=== PATIENT | male | born 1965 | race Caucasian/White ===

== ENCOUNTER 2018-02-02 19:08 | Inpatient (IN) | payer MEDICARE, OTHER ==
[2018-02-02 19:59] LABS: % BASOPHILS 0.8 % (0.0-2.0); % EOSINOPHILS 4.6 % (0.0-5.0); % LYMPHOCYTES 26.6 % (20.0-50.0); % MONOCYTES 7.6 % (2.0-10.0); % NEUTROPHILS 60.4 % (40.0-80.0); EOSINOPHILE ABSOLUTE 0.3 Th/cmm (0.1-0.4); HEMATOCRIT 40.7 % (41.0-60); HEMOGLOBIN 13.7 gm/dL (12-16); LYMPHOCYTE ABSOLUTE 1.6 Th/cmm (1.5-3.0); MEAN CELL VOLUME 91.7 fl (80-99); MEAN CORPUSCULAR HEMOGLOBIN 30.9 pg (26.0-30.0); MEAN CORPUSCULAR HGB CONC 33.7 pg (28.0-36.0); MEAN PLATELET VOLUME 8.5 fl; MONOCYTE ABSOLUTE 0.5 Th/cmm (0.3-1.0); NEUTROPHILE ABSOLUTE 3.6 Th/cmm (1.8-8.0); PLATELET COUNT 208 Th/cmm (150-400); RED BLOOD COUNT 4.44 Mil/cmm (4.30-5.70); RED CELL DISTRIBUTION WIDTH 12.8 % (11.5-20.0)
[2018-02-02 20:14] LABS: ALB/GLOB RATIO 1.2 (1.0-1.8); ALBUMIN 3.9 gm/dL (4.2-5.5); BILIRUBIN,TOTAL 0.3 mg/dL (0.3-1.0); CALCIUM SERUM 9.6 mg/dL (8.6-10.3); CREATININE - SERUM 1.7 mg/dL (0.7-1.3); GFR AFRICAN-AMERICAN 54.3 ml/min (>90); GFR NON AFRICAN-AMERICAN 44.9 ml/min; PHOSPHOROUS 3.8 mg/dL (2.5-5.0); TOTAL PROTEIN,SERUM 7.3 gm/dL (6.0-8.3)
[2018-02-02 20:23] LABS: URINE SOURCE CLEAN C
[2018-02-02 20:26] LABS: URINE BILIRUBIN NEGATIVE (NEGATIVE); URINE BLOOD NEGATIVE (NEGATIVE); URINE GLUCOSE (UA) 250 mg/dL (NEGATIVE); URINE KETONE NEGATIVE (NEGATIVE); URINE LEUKOCYTE ESTERASE NEGATIVE (NEGATIVE); URINE NITRATE NEGATIVE (NEGATIVE); URINE PH 5.5 (4.6 - 8.0); URINE PROTEIN >=300 mg/dL (NEGATIVE); URINE UROBILINOGEN 0.2 E.U./dL (0.2 - 1.0)
[2018-02-02 20:40] LABS: URINE CLARITY CLEAR (CLEAR); URINE COLOR YELLOW; URINE MICROSCOPIC INDICATED? YES
[2018-02-02 20:43] LABS: URINE BACTERIA FEW /hpf (NONE SEEN); URINE COARSE GRANULAR CAST 0-2 /lpf (NONE SEEN); URINE EPITHELIAL CELLS FEW /lpf (FEW); URINE RBC 0-2 /hpf (0-5)
[2018-02-02 20:48] LABS: AMPHETAMINE URINE NEGATIVE (NEGATIVE); BARBITURATES URINE NEGATIVE (NEGATIVE); BENZODIAZEPINES QUAL URINE NEGATIVE (NEGATIVE); CANNABINOID THC NEGATIVE (NEGATIVE); COCAINE METABOLITE QUAL URINE NEGATIVE (NEGATIVE); METHADONE URINE NEGATIVE (NEGATIVE); METHAMPHETAMINES QUAL URINE NEGATIVE (NEGATIVE); OPIATES (MORPHINE) QUAL. URINE POSITIVE (NEGATIVE); PHENCYCLIDINE (PCP) URINE NEGATIVE (NEGATIVE); TRICYCLICS (TCA) QUAL. URINE NEGATIVE (NEGATIVE)
--- NOTE | 2018-02-02 20:48 | ED Physician Chart ---
ED Chief Complaint/HPI - Patient Information Date Seen:: 02/02/18 Time Seen:: 19:25 Chief Complaint:: increased agitation. History of Present Illness:: resident struck the wall. increased agitation. Allergies:: Allergies Allergy/AdvReac Type Severity Reaction Status Date / Time No Known Allergies Allergy Verified 02/02/18 19:51 Vitals:: Vital Signs - 8 hr 02/02/18 19:25 Temp 97.9 F HR 78 RR 18 BP 127/75 O2 Sat % 98 Historian:: Medical Records Review:: Nurse's Note Reviewed, Transfer documents Reviewed ED Review of Systems - Review of Systems General/Constitutional: No fever, No chills, No weight loss, No weakness, No diaphoresis, No edema, No loss of appetite Skin: No skin lesions, No rash, No bruising Head: No headache, No light-headedness Eyes: No loss of vision, No pain, No diplopia ENT: No earache, No nasal drainage, No sore throat, No tinnitus Neck: No neck pain, No swelling, No thyromegaly, No stiffness, No mass noted Cardio Vascular: No chest pain, No palpitations, No PND, No orthopnea, No edema Pulmonary: No SOB, No cough, No sputum, No wheezing GI: No nausea, No vomiting, No diarrhea, No pain, No melena, No hematochezia, No constipation, No hematemesis G/U: No dysuria, No frequency, No hematuria Musculoskeletal: No bone or joint pain, No back pain, No muscle pain Endocrine: No polyuria, No polydipsia Psychiatric: Other (increased agitation. punched a wall.) Hematopoietic: No bruising, No lymphadenopathy Allergic/Immuno: No urticaria, No angioedema Neurological: No syncope, No focal symptoms, No weakness, No paresthesia, No headache, No seizure, No dizziness, No confusion, No vertigo ED Past Medical History - Past Medical History Obtainable: No Past Medical History: HTN, DM, CVA/TIA, Dyslipidemia, PUD/GERD, Seizures, Other (dysphagia; muscle weakness; difficulty in walking; peripheral vascular disease ; dysarthria) Psychiatricy History: Depression, Schizophrenia, Other (anxiety) Family Medical History - Family Member Mother History Unknown: Yes Ethnicity: Unknown Hx Family Cancer: (unknown) Hx Family Coronary Artery Disease: (unknown) Hx Family Congestive Heart Failure: (unknown) Hx Family Hypertension: (unknown) Hx Family Stroke: (unknown) Hx Family Diabetes: (unknown) Hx Family Seizures: (unknown) Hx Family Dementia: (unknown) Hx Family AIDS: (unknown) Hx Family COPD: (unknown) Hx Family Hepatitis: (unknown) Hx Family Psychiatric Problems: (unknown) Hx Family Tuberculosis: (unknown) ED Physical Exam - Physical Examination General/Constitutional: Awake, Alert, No distress Other Gen/Cons comments:: pale and chronically ill appearing Head: Atraumatic Eyes: Lids, conjuctiva normal, PERRL, EOMI Other Skin comments:: No skin breakdown or sores. Neck: Nontender, Full ROM w/o pain, No JVD, No nuchal rigidity, No bruit, No mass, No stridor Respiratory: Nl effort/Exclusion, Clear to Auscultation, No Wheeze/Rhonchi/Rales Cardio Vascular: RRR, No murmur, gallop, rubs, NL S1 S2 GI: No tenderness/rebounding/guarding, No organomegaly, No hernia, Normal BS's, Nondistended, No mass/bruits, No McBurney tenderness Other Extremities comments:: LUE contracted with 1/5. LLE with 1/5. No skin breakdown or sores. Neuro/Psych: Alert/oriented Other Neuro/Psych comments:: LUE contracted with 1/5. LLE with 1/5. ED Labs/Radiology/EKG Results - Lab Results Results: Laboratory Tests 02/02/18 02/02/18 02/02/18 19:52 19:52 19:52 WBC 6.0 RBC 4.44 Hgb 13.7 Hct 40.7 L MCV 91.7 MCH 30.9 H MCHC Differential 33.7 RDW 12.8 Plt Count 208 MPV 8.5 Neutrophils % 60.4 Lymphocytes % 26.6 Monocytes % 7.6 Eosinophils % 4.6 Basophils % 0.8 Sodium 137 Potassium 4.0 Chloride 101 Carbon Dioxide 29.0 Anion Gap 11.0 BUN 24 Creatinine 1.7 H Est GFR ( Amer) 54.3 Est GFR (Non-Af Amer) 44.9 BUN/Creatinine Ratio 14.1 Glucose 300 H Calcium 9.6 Phosphorus 3.8 Magnesium 2.0 Total Bilirubin 0.3 AST 16 ALT 14 Alkaline Phosphatase 50 Total Protein 7.3 Albumin 3.9 L Globulin 3.4 Albumin/Globulin Ratio 1.2 Urine Source Urine Color Urine Clarity Urine pH Ur Specific [place] Urine Protein Urine Glucose (UA) Urine Ketones Urine Blood Urine Nitrate Urine Bilirubin Urine Urobilinogen Ur Leukocyte Esterase Urine RBC Urine WBC Ur Epithelial Cells Urine Bacteria Coarse Granular Casts Valproic Acid < 10.0 L 02/02/18 20:00 WBC RBC Hgb Hct MCV MCH MCHC Differential RDW Plt Count MPV Neutrophils % Lymphocytes % Monocytes % Eosinophils % Basophils % Sodium Potassium Chloride Carbon Dioxide Anion Gap BUN Creatinine Est GFR ( Amer) Est GFR (Non-Af Amer) BUN/Creatinine Ratio Glucose Calcium Phosphorus Magnesium Total Bilirubin AST ALT Alkaline Phosphatase Total Protein Albumin Globulin Albumin/Globulin Ratio Urine Source CLEAN C Urine Color YELLOW Urine Clarity CLEAR Urine pH 5.5 Ur Specific [place] >= 1.030 Urine Protein >=300 Urine Glucose (UA) 250 H Urine Ketones NEGATIVE Urine Blood NEGATIVE Urine Nitrate NEGATIVE Urine Bilirubin NEGATIVE Urine Urobilinogen 0.2 Ur Leukocyte Esterase NEGATIVE Urine RBC 0-2 H Urine WBC 2-5 Ur Epithelial Cells FEW Urine Bacteria FEW Coarse Granular Casts 0-2 H Valproic Acid ED Assessment - Assessment General Assessment: resting comfortably. has eaten dinner. Assessment/Comments:: patient is clear from a medical standpoint for geropsych. ED Septic Shock - . Is Septic Shock (SBP<90, OR Lactate>4 mmol\L) present?: No - <6hrs of presentation: Vital Signs: Vital Signs - 8 hr 02/02/18 19:25 Temp 97.9 F HR 78 RR 18 BP 127/75 O2 Sat % 98 ED Reassessment (Disposition) - Reassessment Reassessment Condition:: Unchanged - Diagnosis Diagnosis:: Increased agitation. Schizophrenia Anxiety Major depressive disorder Diabetes mellitus, not well controlled. 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 Hyperlipidemia HTN PVD GERD witout esophagitis Epilepsy, unspecified, not intractable - Patient Disposition Discharge/Transfer:: Acute Care w/in this hosp Admitted to:: [facility] Condition at Disposition:: Stable
[2018-02-02] MEDS ORDERED: INSULIN HUMAN REGULAR 100 UNITS/ML UNIT SUBQ ONE (20:56)
[2018-02-02] MEDS ORDERED: INSULIN HUMAN REGULAR 100 UNITS/ML UNIT ONE (20:59)
[2018-02-02 22:05] VITALS: BP 179/96
[2018-02-03] MEDS: Hydrocodone/APAP 5mg/325mg Tab PO SCH ×3 (05:21→20:31)
[2018-02-03] MEDS: INSULIN ASPART SLIDING SCALE 100 UNITS/ML UNIT SUBQ SCH ×4 (06:41→21:00)
[2018-02-03] MEDS: Insulin Detemir 100 units/mL 10mL Vial SUBQ SCH ×2 (10:08→20:48)
[2018-02-03 21:10] LABS: A1C % 8.8 % (4.0-6.0)
--- NOTE | 2018-02-04 01:10 | Psychiatric Evaluation ---
DATE OF SERVICE: 02/02/2018 PSYCHIATRIC INITIAL EVALUATION AND MENTAL STATUS EXAM PATIENT'S AGE: 52. SEX: Male. PHYSICIAN: Dr. Lawson. CHIEF COMPLAINT: Severe depression and self-destructive injury. HISTORY OF PRESENT ILLNESS: The patient is a 52-year-old male who lives in [facility]. I evaluated the patient there and the patient has been in a depressed mood and has been upset because he has difficulty swallowing. The patient also has been feeling hopeless and helpless and has been hitting his head against the wall. Especially, that his girlfriend who is also a resident in the [facility], has been doing better than him. The patient also has been withdrawn and has been feeling lack of energy and lack of motivations and he has been more agitated lately because of his inability to do more things. PAST PSYCHIATRIC HISTORY: The patient has history of depression and schizophrenia and has been taking Prozac and Depakote and Tegretol. PAST MEDICAL HISTORY: The patient has hypertension, diabetes mellitus, status post CVA and TIA. The patient also has history of seizure disorder. FAMILY HISTORY: No known psychiatric history. SOCIAL HISTORY: The patient lives in [facility]. No known alcohol or drug use. ALLERGIES: No known allergies. MENTAL STATUS EXAMINATION: The patient appears slightly older than his stated age. Sad affect. Depressed mood. Poor eye contact. Low tone and rate of speech. Thought processes are mainly goal directed. The patient denies any auditory or visual hallucinations or delusions. He also denies any thoughts of suicide or homicide at the time being. The patient is alert and oriented to place, person, and situation. Intact immediate, recent and remote memories. Fair insight, but poor judgment. He seems to be of average intelligence based on his verbal ability. ASSESSMENT: PRIMARY DIAGNOSIS: Schizoaffective disorder, depressed episode, with psychotic features. AFTER DISCHARGE PLAN: The patient will return to the [place] [facility] with plans to continue his treatment there. CRITERIA FOR DISCHARGE: The patient will not be depressed or suicidal and will stabilize psychotropic medications and will establish outpatient treatment plans. [facility]# [id number]
[2018-02-04] MEDS: Hydrocodone/APAP 5mg/325mg Tab PO SCH ×3 (05:15→20:25)
[2018-02-04] MEDS: INSULIN ASPART SLIDING SCALE 100 UNITS/ML UNIT SUBQ SCH ×4 (07:03→20:27)
[2018-02-04] MEDS: Insulin Detemir 100 units/mL 10mL Vial SUBQ SCH ×2 (09:21→20:26)
--- NOTE | 2018-02-04 13:20 | Progress Notes ---
DATE: 02/04/[address] Lawson. This is a 52-year-old male who was admitted on 02/02/2018 because of severe depression, self-destructive injury. The patient lives at [facility]. The patient has been depressed, upset because he has difficulty swallowing. The patient also has been feeling hopeless and helpless, has been hitting his head against the wall, especially that his girlfriend who is also a resident in the [facility] has been doing better than him, has been withdrawn, has been feeling lack of energy and motivation, more agitated lately because of his inability to do things. He has a history of depression, has been taking Prozac and Depakote and Tegretol. The patient with a history of depression and schizophrenia. When I tried to talk to him, he was internally preoccupied. He would not answer any of my questions. He seems to be upset. He is on Depakote 250 mg twice a day, Prozac increased to 40 mg daily yesterday by Dr. Lawson. The patient also on Trileptal 300 mg twice a day with no side effects, no sedation, no nausea and no extrapyramidal symptoms. His Depakote level was non-detected. Obviously, the patient may have not been compliant with his medication prior to admission, so we are going to recheck his level in few days and we will continue outpatient group therapy, milieu therapy, adjust medications as needed. [facility]# [id number]
--- NOTE | 2018-02-04 21:19 | History and Physical ---
History of Present Illness - HPI Chief Complaint: aggressive behavior HPI: 51 year old male admitted to [facility] due to aggressive behavior at the snf. Vital Signs: Last Vital Signs Temp 97.7 F 02/04/18 20:00 Pulse 72 02/04/18 20:24 Resp 19 02/04/18 20:00 BP 116/74 02/04/18 20:24 Pulse Ox 96 02/04/18 20:00 Past Medical History Other History: HTN, DM, CVA/TIA, Dyslipidemia, PUD/GERD, Seizures, Other (dysphagia; muscle weakness; difficulty in walking; peripheral vascular disease; dysarthria Family Medical History - Family Member Mother History Unknown: Yes Ethnicity: Unknown Living Status: Unknown Hx Family Cancer: (unknown) Hx Family Coronary Artery Disease: (unknown) Hx Family Congestive Heart Failure: (unknown) Hx Family Hypertension: (unknown) Hx Family Stroke: (unknown) Hx Family Diabetes: (unknown) Hx Family Seizures: (unknown) Hx Family Dementia: (unknown) Hx Family AIDS: (unknown) Hx Family COPD: (unknown) Hx Family Hepatitis: (unknown) Hx Family Psychiatric Problems: (unknown) Hx Family Tuberculosis: (unknown) Social History Smoke: No Alcohol: None Drugs: None Lives: Snf - Medications Home Medications: Home Medication Medication Instructions Recorded Type Divalproex [Randee RUIZ] 250 mg PO BID tcp 05/22/17 Rx Famotidine [Pepcid] 20 mg PO BID tab 05/22/17 Rx Insulin Aspart Sliding Scale See Protocol SUBQ ACHS unit 05/22/17 Rx [NovoLOG INSULIN SLIDING SCALE] Insulin Detemir [Levemir Insulin] 25 units SUBQ Q12HR vial 05/22/17 Rx Metoprolol Tartrate [Lopressor] 50 mg PO BID tab 05/22/17 Rx Simvastatin [Zocor*] 20 mg PO HS tab 05/22/17 Rx amLODIPine Besylate [Norvasc*] 10 mg PO DAILY tab 05/22/17 Rx OXcarbazepine [Trileptal] 300 mg PO Q12HR tab 05/23/17 Rx FLUoxetine HCL [PROzac] 30 mg PO DAILY 02/02/18 History Hydralazine [Apresoline*] 25 mg PO TID 02/02/18 History Hydrocodone/APAP 5mg/325mg [[place] 1 tab PO Q8HR 02/02/18 History 5mg/325mg] - Allergies Allergies/Adverse Reactions: Allergies Allergy/AdvReac Type Severity Reaction Status Date / Time No Known Allergies Allergy Verified 02/02/18 19:51 Review of Systems - Review of Systems Constitutional: Report: No Significant Eyes: Report: No Significant ENT: Report: No Significant Respiratory: Report: No Significant Cardiovascular: Report: No Significant Neurological: Report: No Significant Physical Exam - Physical Exam HEENT: Report: Ears Nose Throat within normal limits Neck: Report: Within normal limits Cardiovascular Systems: Report: +s1/s2 noted, Regular, Rate and Rhythm Respiratory: Report: Breath Sounds are within normal limits Abdomen: Report: Non-tender to palpation Back: Report: Inspection of back is within normal limits. Extremities: Report: Non-tender to palpation. Skin: Report: Color of skin is within normal limits Neuro/Psych: Report: Mood affect is within normal limits - Lab Results All Lab Results last 24 hours: Laboratory Results - last 24 hr 02/04/18 19:59 POC Glucose 285 H Microbiology 02/02/18 20:00 - Final Nares NO MRSA ISOLATED - Assessment Assessment: HTN DM hx CVA/TIA Dyslipidemia PUD/GERD Seizure pvd - Plan Plan: seizure precaution continue snf meds
[2018-02-05] MEDS: Hydrocodone/APAP 5mg/325mg Tab PO SCH ×3 (05:43→21:21)
[2018-02-05] MEDS: INSULIN ASPART SLIDING SCALE 100 UNITS/ML UNIT SUBQ SCH ×4 (06:34→21:00)
[2018-02-05] MEDS: Insulin Detemir 100 units/mL 10mL Vial SUBQ SCH ×2 (08:40→21:00)
--- NOTE | 2018-02-05 11:16 | General Progress Note ---
Subjective - Review of Systems Events since last encounter: patient admitted for agressive behavior in snf patient is awake alert confused Objective - Results Result Diagrams: 02/02/18 19:52 02/02/18 19:52 Recent Labs: Laboratory Last Values WBC 6.0 Th/cmm (4.8-10.8) 02/02/18 19:52 RBC 4.44 Mil/cmm (4.30-5.70) 02/02/18 19:52 Hgb 13.7 gm/dL (12-16) 02/02/18 19:52 Hct 40.7 % (41.0-60) L 02/02/18 19:52 MCV 91.7 fl (80-99) 02/02/18 19:52 MCH 30.9 pg (26.0-30.0) H 02/02/18 19:52 MCHC Differential 33.7 pg (28.0-36.0) 02/02/18 19:52 RDW 12.8 % (11.5-20.0) 02/02/18 19:52 Plt Count 208 Th/cmm (150-400) 02/02/18 19:52 MPV 8.5 fl 02/02/18 19:52 Neutrophils % 60.4 % (40.0-80.0) 02/02/18 19:52 Lymphocytes % 26.6 % (20.0-50.0) 02/02/18 19:52 Monocytes % 7.6 % (2.0-10.0) 02/02/18 19:52 Eosinophils % 4.6 % (0.0-5.0) 02/02/18 19:52 Basophils % 0.8 % (0.0-2.0) 02/02/18 19:52 Sodium 137 mEq/L (136-145) 02/02/18 19:52 Potassium 4.0 mEq/L (3.5-5.1) 02/02/18 19:52 Chloride 101 mEq/L (98-107) 02/02/18 19:52 Carbon Dioxide 29.0 mEq/L (21.0-31.0) 02/02/18 19:52 Anion Gap 11.0 (7.0-16.0) 02/02/18 19:52 BUN 24 mg/dL (7-25) 02/02/18 19:52 Creatinine 1.7 mg/dL (0.7-1.3) H 02/02/18 19:52 Est GFR ( Amer) 54.3 ml/min (>90) 02/02/18 19:52 Est GFR (Non-Af Amer) 44.9 ml/min 02/02/18 19:52 BUN/Creatinine Ratio 14.1 02/02/18 19:52 Glucose 300 mg/dL (70-105) H 02/02/18 19:52 POC Glucose 285 MG/DL (70 - 105) H 02/04/18 19:59 Hemoglobin A1c % 8.8 % (4.0-6.0) H 02/02/18 19:52 Calcium 9.6 mg/dL (8.6-10.3) 02/02/18 19:52 Phosphorus 3.8 mg/dL (2.5-5.0) 02/02/18 19:52 Magnesium 2.0 mg/dL (1.9-2.7) 02/02/18 19:52 Total Bilirubin 0.3 mg/dL (0.3-1.0) 02/02/18 19:52 AST 16 U/L (13-39) 02/02/18 19:52 ALT 14 U/L (7-52) 02/02/18 19:52 Alkaline Phosphatase 50 U/L (34-104) 02/02/18 19:52 Total Protein 7.3 gm/dL (6.0-8.3) 02/02/18 19:52 Albumin 3.9 gm/dL (4.2-5.5) L 02/02/18 19:52 Globulin 3.4 gm/dL 02/02/18 19:52 Albumin/Globulin Ratio 1.2 (1.0-1.8) 02/02/18 19:52 Urine Source CLEAN C 02/02/18 20:00 Urine Color YELLOW 02/02/18 20:00 Urine Clarity CLEAR (CLEAR) 02/02/18 20:00 Urine pH 5.5 (4.6 - 8.0) 02/02/18 20:00 Ur Specific [place] >= 1.030 (1.005-1.030) 02/02/18 20:00 Urine Protein >=300 mg/dL (NEGATIVE) 02/02/18 20:00 Urine Glucose (UA) 250 mg/dL (NEGATIVE) H 02/02/18 20:00 Urine Ketones NEGATIVE mg/dL (NEGATIVE) 02/02/18 20:00 Urine Blood NEGATIVE (NEGATIVE) 02/02/18 20:00 Urine Nitrate NEGATIVE (NEGATIVE) 02/02/18 20:00 Urine Bilirubin NEGATIVE (NEGATIVE) 02/02/18 20:00 Urine Urobilinogen 0.2 E.U./dL (0.2 - 1.0) 02/02/18 20:00 Ur Leukocyte Esterase NEGATIVE (NEGATIVE) 02/02/18 20:00 Urine RBC 0-2 /hpf (0-5) H 02/02/18 20:00 Urine WBC 2-5 /hpf (0-5) 02/02/18 20:00 Ur Epithelial Cells FEW /lpf (FEW) 02/02/18 20:00 Urine Bacteria FEW /hpf (NONE SEEN) 02/02/18 20:00 Coarse Granular Casts 0-2 /lpf (NONE SEEN) H 02/02/18 20:00 Urine Opiates Screen POSITIVE (NEGATIVE) H 02/02/18 20:00 Urine Methadone Screen NEGATIVE (NEGATIVE) 02/02/18 20:00 Ur Barbiturates Screen NEGATIVE (NEGATIVE) 02/02/18 20:00 Valproic Acid < 10.0 ug/mL (50.0-100.0) L 02/02/18 19:52 Ur Tricyclics Screen NEGATIVE (NEGATIVE) 02/02/18 20:00 Ur Phencyclidine Scrn NEGATIVE (NEGATIVE) 02/02/18 20:00 Amphetamines Screen NEGATIVE (NEGATIVE) 02/02/18 20:00 U Methamphetamines Scrn NEGATIVE (NEGATIVE) 02/02/18 20:00 U Benzodiazepines Scrn NEGATIVE (NEGATIVE) 02/02/18 20:00 U Cocaine Metab Screen NEGATIVE (NEGATIVE) 02/02/18 20:00 U Cannabinoids Screen NEGATIVE (NEGATIVE) 02/02/18 20:00 - Physical Exam Vitals and I&O: Vital Signs Temp 97.6 F 02/05/18 06:26 Pulse 90 02/05/18 08:36 Resp 18 02/05/18 06:26 BP 110/68 02/05/18 08:36 Pulse Ox 96 02/05/18 06:26 Intake & Output 02/04/18 02/05/18 02/05/18 18:59 06:59 18:59 Intake Total 960 120 Balance 960 120 Intake: Oral 960 120 Other: # Voids 3 3 # Bowel Movements 0 Active Medications: Current Medications Acetaminophen/Hydrocodone Bitart ([place] 5mg/325mg) 1 tab PO Q8HR [facility] Stop: 04/04/18 04:59 Last Admin: 02/05/18 05:43 Dose: Not Given Amlodipine Besylate (Norvasc) 10 mg PO DAILY [facility] Stop: 04/04/18 08:59 Last Admin: 02/05/18 08:36 Dose: 10 mg Divalproex Sodium (Depakote Dr) 250 mg PO BID [facility]; Protocol Stop: 04/04/18 08:59 Last Admin: 02/05/18 08:35 Dose: 250 mg Famotidine (Pepcid) 20 mg PO DAILY [facility] Stop: 04/04/18 08:59 Last Admin: 02/05/18 08:36 Dose: 20 mg Fluoxetine HCl (Prozac) 40 mg PO DAILY [facility]; Protocol Stop: 04/05/18 08:59 Last Admin: 02/05/18 08:35 Dose: 40 mg Hydralazine HCl (Apresoline) 25 mg PO TID [facility] Stop: 04/03/18 21:59 Last Admin: 02/05/18 08:35 Dose: 25 mg Insulin Aspart (Novolog Insulin Sliding Scale) 0 units SUBQ ACHS [facility]; Protocol Stop: 04/04/18 07:29 Last Admin: 02/05/18 06:34 Dose: Not Given Insulin Detemir (Levemir Insulin) 25 units SUBQ Q12HR [facility]; Protocol Stop: 04/04/18 08:59 Last Admin: 02/05/18 08:40 Dose: 25 units Lorazepam (Ativan) 0.5 mg PO Q4HR PRN; Protocol PRN Reason: Anxiety Stop: 03/04/18 23:12 Last Admin: 02/05/18 08:40 Dose: 0.5 mg Metoprolol Tartrate (Lopressor) 50 mg PO BID [facility] Stop: 04/04/18 08:59 Last Admin: 02/04/18 17:56 Dose: Not Given Oxcarbazepine (Trileptal) 300 mg PO Q12HR [facility]; Protocol Stop: 04/04/18 08:59 Last Admin: 02/05/18 08:36 Dose: 300 mg Simvastatin (Zocor) 20 mg PO HS [facility]AL[facility]; Protocol Stop: 04/04/18 20:59 Last Admin: 02/04/18 20:25 Dose: 20 mg Zolpidem Tartrate (Ambien) 5 mg PO HS PRN PRN Reason: Insomnia Stop: 04/03/18 23:12 Last Admin: 02/04/18 20:26 Dose: 5 mg General: No acute distress HEENT: Atraumatic, PERRLA Neck: Supple, JVD Cardiovascular: Normal S1 Assessment/Plan - Assessment Assessment: HTN DM hx CVA/TIA Dyslipidemia PUD/GERD Seizure pvd - Plan Plan: seizure precaution continue snf meds Nutritional Asmnt/Malnutr-PDOC - Dietary Evaluation Malnutrition Findings (Please click <Entered> for more info): Nutritional Asmnt/Malnutrition Start: 02/03/18 13: 39 Text: Status: Complete Freq: Protocol: Document 02/03/18 13:39 [id number] (Rec: 02/03/18 13:49 [id number]) Nutritional Asmnt/Malnutrition Patient General Information Nutritional Screening High Risk Diagnosis psychosis NOS Pertinent Medical Hx/Surgical Hx HTN, DM, CVA/TIA, dyslipidemia , PUD/GERD, seizures, dysphagia, muscle weakness, difficulty in walking, PVD, dysartria, depression, schizophrenia, anxiety Subjective Information Pt seen sitting in chau-chair, confused, not able to communicate. Per nurse, pt consumed about 75% of breakfast this morning. Glucose 300 at admission noted . Current Diet Order/ Nutrition Support [facility] soft chopped, nectar thick liquid Patient / S.O Can't verbalize diet edu Pertinent Medications pepcid, novolog, levemir Pertinent Labs 02/02 Cr 1.7, glucose 300, Alb 3.9 02/03 POC 198 Nutritional Hx/Data Height 1.7 m Height (Calculated Centimeters) 170.2 Current Weight (lbs) 58.967 kg Weight (Calculated Kilograms) 59.0 Weight (Calculated Grams) 34422.0 [place] Body Weight 148 Body Mass Index (BMI) 20.3 Weight Status Approriate GI Symptoms GI Symptoms None Last BM not indicated Difficult in: None Skin Integrity/Comment: yolanda Amador skin assessment not available as of this time Current %PO Good (75-100%) Estimated Nutritional Goals BEE in Kcals: Using Current wt Calories/Kcals/Kg 25-30 Kcals Calculated 2532-7107 Protein: Using Current wt Protein g/k-1.2 Protein Calculated 59-71 Fluid: ml 1475-1770ml (1ml/kcal) Nutritional Problem 1. Problem Problem altered nutrition related labs Etiology hx of DM Signs/Symptoms: glucose 300, POC 198 Malnutrition Alert Is there a minimum of two criteria No selected? Query Text:Check all the applicable criteria. A minimum of two criteria are recommended for diagnosis of either severe or non-severe malnutrition. Malnutrition Related to Morbid Obesity Malnutrition related to morbid obesity No Intervention/Recommendation Comments 1. Continue with mech soft chopped with nectar thick liquid diet as ordered. Considering adding CCHO diet if glucose continue high. 2. Monitor PO intake, wt, labs and skin integrity 3. F/U as high risk in 2-3 dyas, 02/05-02/06 Expected Outcomes/Goals Expected Outcomes/Goals 1. PO intake to meet at least 75% of nutritional needs. 2. Wt stability, skin to remain intact, labs to approach WNL.
--- NOTE | 2018-02-05 15:39 | Progress Notes ---
DATE: 02/05/2018 Case was discussed with staff of the patient, reviewed records. The patient has been quite in general, does not say much, internally preoccupied, unable to make safe plan for self-care, appears to be depressed, feeling hopeless and helpless, withdrawn with no energy, no motivation. He is compliant with the medication with no side effects, no sedation, no nausea and no extrapyramidal symptoms. We will continue outpatient group therapy, milieu therapy, and adjust medication as needed. [facility]# [id number]
[2018-02-06] MEDS: Hydrocodone/APAP 5mg/325mg Tab PO SCH ×3 (06:00→21:03)
[2018-02-06] MEDS: INSULIN ASPART SLIDING SCALE 100 UNITS/ML UNIT SUBQ SCH ×4 (06:42→21:03)
[2018-02-06] MEDS: Insulin Detemir 100 units/mL 10mL Vial SUBQ SCH ×2 (12:05→21:05)
--- NOTE | 2018-02-06 12:08 | Internal Medicine Prog Note ---
Internal Medicine Subjective - Subjective Service Date: 02/06/18 Patient seen and examined:: with staff Patient is:: awake Per staff patient has:: tolerating meds Internal Medicine Objective - Results Result Diagrams: 02/02/18 19:52 02/02/18 19:52 Recent Labs: Laboratory Last Values WBC 6.0 Th/cmm (4.8-10.8) 02/02/18 19:52 RBC 4.44 Mil/cmm (4.30-5.70) 02/02/18 19:52 Hgb 13.7 gm/dL (12-16) 02/02/18 19:52 Hct 40.7 % (41.0-60) L 02/02/18 19:52 MCV 91.7 fl (80-99) 02/02/18 19:52 MCH 30.9 pg (26.0-30.0) H 02/02/18 19:52 MCHC Differential 33.7 pg (28.0-36.0) 02/02/18 19:52 RDW 12.8 % (11.5-20.0) 02/02/18 19:52 Plt Count 208 Th/cmm (150-400) 02/02/18 19:52 MPV 8.5 fl 02/02/18 19:52 Neutrophils % 60.4 % (40.0-80.0) 02/02/18 19:52 Lymphocytes % 26.6 % (20.0-50.0) 02/02/18 19:52 Monocytes % 7.6 % (2.0-10.0) 02/02/18 19:52 Eosinophils % 4.6 % (0.0-5.0) 02/02/18 19:52 Basophils % 0.8 % (0.0-2.0) 02/02/18 19:52 Sodium 137 mEq/L (136-145) 02/02/18 19:52 Potassium 4.0 mEq/L (3.5-5.1) 02/02/18 19:52 Chloride 101 mEq/L (98-107) 02/02/18 19:52 Carbon Dioxide 29.0 mEq/L (21.0-31.0) 02/02/18 19:52 Anion Gap 11.0 (7.0-16.0) 02/02/18 19:52 BUN 24 mg/dL (7-25) 02/02/18 19:52 Creatinine 1.7 mg/dL (0.7-1.3) H 02/02/18 19:52 Est GFR ( Amer) 54.3 ml/min (>90) 02/02/18 19:52 Est GFR (Non-Af Amer) 44.9 ml/min 02/02/18 19:52 BUN/Creatinine Ratio 14.1 02/02/18 19:52 Glucose 300 mg/dL (70-105) H 02/02/18 19:52 POC Glucose 255 MG/DL (70 - 105) H 02/06/18 11:20 Hemoglobin A1c % 8.8 % (4.0-6.0) H 02/02/18 19:52 Calcium 9.6 mg/dL (8.6-10.3) 02/02/18 19:52 Phosphorus 3.8 mg/dL (2.5-5.0) 02/02/18 19:52 Magnesium 2.0 mg/dL (1.9-2.7) 02/02/18 19:52 Total Bilirubin 0.3 mg/dL (0.3-1.0) 02/02/18 19:52 AST 16 U/L (13-39) 02/02/18 19:52 ALT 14 U/L (7-52) 02/02/18 19:52 Alkaline Phosphatase 50 U/L (34-104) 02/02/18 19:52 Total Protein 7.3 gm/dL (6.0-8.3) 02/02/18 19:52 Albumin 3.9 gm/dL (4.2-5.5) L 02/02/18 19:52 Globulin 3.4 gm/dL 02/02/18 19:52 Albumin/Globulin Ratio 1.2 (1.0-1.8) 02/02/18 19:52 Urine Source CLEAN C 02/02/18 20:00 Urine Color YELLOW 02/02/18 20:00 Urine Clarity CLEAR (CLEAR) 02/02/18 20:00 Urine pH 5.5 (4.6 - 8.0) 02/02/18 20:00 Ur Specific [place] >= 1.030 (1.005-1.030) 02/02/18 20:00 Urine Protein >=300 mg/dL (NEGATIVE) 02/02/18 20:00 Urine Glucose (UA) 250 mg/dL (NEGATIVE) H 02/02/18 20:00 Urine Ketones NEGATIVE mg/dL (NEGATIVE) 02/02/18 20:00 Urine Blood NEGATIVE (NEGATIVE) 02/02/18 20:00 Urine Nitrate NEGATIVE (NEGATIVE) 02/02/18 20:00 Urine Bilirubin NEGATIVE (NEGATIVE) 02/02/18 20:00 Urine Urobilinogen 0.2 E.U./dL (0.2 - 1.0) 02/02/18 20:00 Ur Leukocyte Esterase NEGATIVE (NEGATIVE) 02/02/18 20:00 Urine RBC 0-2 /hpf (0-5) H 02/02/18 20:00 Urine WBC 2-5 /hpf (0-5) 02/02/18 20:00 Ur Epithelial Cells FEW /lpf (FEW) 02/02/18 20:00 Urine Bacteria FEW /hpf (NONE SEEN) 02/02/18 20:00 Coarse Granular Casts 0-2 /lpf (NONE SEEN) H 02/02/18 20:00 Urine Opiates Screen POSITIVE (NEGATIVE) H 02/02/18 20:00 Urine Methadone Screen NEGATIVE (NEGATIVE) 02/02/18 20:00 Ur Barbiturates Screen NEGATIVE (NEGATIVE) 02/02/18 20:00 Valproic Acid < 10.0 ug/mL (50.0-100.0) L 02/02/18 19:52 Ur Tricyclics Screen NEGATIVE (NEGATIVE) 02/02/18 20:00 Ur Phencyclidine Scrn NEGATIVE (NEGATIVE) 02/02/18 20:00 Amphetamines Screen NEGATIVE (NEGATIVE) 02/02/18 20:00 U Methamphetamines Scrn NEGATIVE (NEGATIVE) 02/02/18 20:00 U Benzodiazepines Scrn NEGATIVE (NEGATIVE) 02/02/18 20:00 U Cocaine Metab Screen NEGATIVE (NEGATIVE) 02/02/18 20:00 U Cannabinoids Screen NEGATIVE (NEGATIVE) 02/02/18 20:00 - Physical Exam Vitals and I&O: Vital Signs Temp 97.8 F 02/06/18 06:29 Pulse 60 02/06/18 09:03 Resp 20 02/06/18 06:29 BP 155/86 02/06/18 09:03 Pulse Ox 96 08/31/18 06:29 Intake & Output 02/05/18 02/06/18 02/06/18 18:59 06:59 18:59 Intake Total 1400 120 Balance 1400 120 Intake: Oral 1400 120 Other: # Voids 4 3 # Bowel Movements 0 Active Medications: Current Medications Acetaminophen/Hydrocodone Bitart ([place] 5mg/325mg) 1 tab PO Q8HR [facility] Stop: 04/04/18 04:59 Last Admin: 02/06/18 06:00 Dose: 1 tab Amlodipine Besylate (Norvasc) 10 mg PO DAILY [facility] Stop: 04/04/18 08:59 Last Admin: 02/06/18 09:03 Dose: 10 mg Divalproex Sodium (Depakote Dr) 250 mg PO BID [facility]; Protocol Stop: 04/04/18 08:59 Last Admin: 02/06/18 09:03 Dose: 250 mg Famotidine (Pepcid) 20 mg PO DAILY [facility] Stop: 04/04/18 08:59 Last Admin: 02/06/18 09:04 Dose: 20 mg Fluoxetine HCl (Prozac) 40 mg PO DAILY [facility]; Protocol Stop: 04/05/18 08:59 Last Admin: 02/06/18 09:04 Dose: 40 mg Hydralazine HCl (Apresoline) 25 mg PO TID [facility] Stop: 04/03/18 21:59 Last Admin: 02/06/18 09:01 Dose: 25 mg Insulin Aspart (Novolog Insulin Sliding Scale) 0 units SUBQ ACHS [facility]; Protocol Stop: 04/04/18 07:29 Last Admin: 02/06/18 11:53 Dose: 4 units Insulin Detemir (Levemir Insulin) 25 units SUBQ Q12HR [facility]; Protocol Stop: 04/04/18 08:59 Last Admin: 02/06/18 12:05 Dose: Not Given Lorazepam (Ativan) 0.5 mg PO Q4HR PRN; Protocol PRN Reason: Anxiety Stop: 03/04/18 23:12 Last Admin: 02/05/18 08:40 Dose: 0.5 mg Metoprolol Tartrate (Lopressor) 50 mg PO BID [facility] Stop: 04/04/18 08:59 Last Admin: 02/06/18 09:03 Dose: 50 mg Oxcarbazepine (Trileptal) 300 mg PO Q12HR [facility]; Protocol Stop: 04/04/18 08:59 Last Admin: 02/06/18 09:03 Dose: 300 mg Simvastatin (Zocor) 20 mg PO HS [facility]; Protocol Stop: 04/04/18 20:59 Last Admin: 02/05/18 21:22 Dose: 20 mg Zolpidem Tartrate (Ambien) 5 mg PO HS PRN PRN Reason: Insomnia Stop: 04/03/18 23:12 Last Admin: 02/05/18 21:22 Dose: 5 mg General: alert HEENT: NC/AT, PERRLA Neck: Supple Lungs: CTAB Cardiovascular: RRR, Normal S1, Normal S2, without murmur Internal Medicine Assmt/Plan - Assessment Assessment: HTN DM hx CVA/TIA Dyslipidemia PUD/GERD Seizure pvd - Plan Plan: seizure precaution cpm Nutritional Asmnt/Malnutr-PDOC - Dietary Evaluation Malnutrition Findings (Please click <Entered> for more info): Nutritional Asmnt/Malnutrition Start: 02/03/18 13: 39 Text: Status: Complete Freq: Protocol: Document 02/03/18 13:39 LCHENG (Rec: 02/03/18 13:49 [email or web address]) Nutritional Asmnt/Malnutrition Patient General Information Nutritional Screening High Risk Diagnosis psychosis NOS Pertinent Medical Hx/Surgical Hx HTN, DM, CVA/TIA, dyslipidemia , PUD/GERD, seizures, dysphagia, muscle weakness, difficulty in walking, PVD, dysartria, depression, schizophrenia, anxiety Subjective Information Pt seen sitting in chau-chair, confused, not able to communicate. Per nurse, pt consumed about 75% of breakfast this morning. Glucose 300 at admission noted . Current Diet Order/ Nutrition Support [facility] soft chopped, nectar thick liquid Patient / S.O Can't verbalize diet edu Pertinent Medications pepcid, novolog, levemir Pertinent Labs 02/02 Cr 1.7, glucose 300, Alb 3.9 02/03 POC 198 Nutritional Hx/Data Height 5 ft 7 in Height (Calculated Centimeters) 170.2 Current Weight (lbs) 130 lb Weight (Calculated Kilograms) 59.0 Weight (Calculated Grams) 03837.0 Norden Body Weight 148 Body Mass Index (BMI) 20.3 Weight Status Approriate GI Symptoms GI Symptoms None Last BM not indicated Difficult in: None Skin Integrity/Comment: yolanda Amador skin assessment not available as of this time Current %PO Good (75-100%) Estimated Nutritional Goals BEE in Kcals: Using Current wt Calories/Kcals/Kg 25-30 Kcals Calculated 4937-0729 Protein: Using Current wt Protein g/k-1.2 Protein Calculated 59-71 Fluid: ml 1475-1770ml (1ml/kcal) Nutritional Problem 1. Problem Problem altered nutrition related labs Etiology hx of DM Signs/Symptoms: glucose 300, POC 198 Malnutrition Alert Is there a minimum of two criteria No selected? Query Text:Check all the applicable criteria. A minimum of two criteria are recommended for diagnosis of either severe or non-severe malnutrition. Malnutrition Related to Morbid Obesity Malnutrition related to morbid obesity No Intervention/Recommendation Comments 1. Continue with mech soft chopped with nectar thick liquid diet as ordered. Considering adding CCHO diet if glucose continue high. 2. Monitor PO intake, wt, labs and skin integrity 3. F/U as high risk in 2-3 dyas, 02/05-02/06 Expected Outcomes/Goals Expected Outcomes/Goals 1. PO intake to meet at least 75% of nutritional needs. 2. Wt stability, skin to remain intact, labs to approach WNL.
--- NOTE | 2018-02-06 16:29 | History & Physical ---
ADMIT DATE: 02/02/2018 The patient was admitted through the Emergency Room for aggressive behavior. HISTORY OF PRESENT ILLNESS: A 51-year-old male patient, because of aggressive behavior from the long term. The patient's past medical history includes history of hypertension, diabetes, history of TIA and hyperlipidemia, peptic ulcer disease, seizures. FAMILY HISTORY: Unremarkable. SOCIAL HISTORY: Not known. Does not smoke, does not drink, lives in long term. MEDICATIONS: The patient on multiple medications including Depakote, Pepcid, insulin, Lopressor, Norvasc, Prozac, Apresoline for blood pressure. REVIEW OF SYSTEMS: Negative. PHYSICAL EXAMINATION: GENERAL: Alert, oriented male patient. VITAL SIGNS: As noted. HEAD: Normal. ENT: Normal. NECK: Supple, nontender. LUNGS: Clear. CARDIOVASCULAR SYSTEM: S1, S2 heard. ABDOMEN: Soft. Bowel sounds are heard. CENTRAL NERVOUS SYSTEM: Grossly normal. DIAGNOSES: Hypertension, diabetes, CVA, TIA, hyperlipidemia, peptic ulcer disease, seizures, peripheral vascular disease and history of psychosis. PLAN: The patient was admitted to Psych Unit. I will be following the patient along with the psychiatrist. JOB# [id number]
--- NOTE | 2018-02-06 23:57 | Progress Notes ---
DATE: 02/06/2018 SUBJECTIVE: Case was discussed with staff of the patient and reviewed records. The patient continues to be unpredictable, impulsive, internally preoccupied, stays to himself. Continues to have poor insight. He is sleeping better, eating better, hardly says anything. I tried to talk to him. OBJECTIVE: He is compliant with the medication with no side effects, no sedation, no nausea. I will continue outpatient group therapy, milieu therapy, adjust medication as needed. JOB# [id number]
[2018-02-07] MEDS: Hydrocodone/APAP 5mg/325mg Tab PO SCH ×3 (05:02→20:56)
[2018-02-07] MEDS: INSULIN ASPART SLIDING SCALE 100 UNITS/ML UNIT SUBQ SCH ×4 (06:49→21:05)
--- NOTE | 2018-02-07 08:59 | Progress Notes ---
DATE: 02/07/2018 DATE OF SERVICE: 02/07/2018 SUBJECTIVE: The patient is here for severe depression and self-destructive behaviors, feeling hopeless, helpless, hitting head against the wall. The patient is withdrawn, feeling a lack of energy. On [id number], the patient is just telling me he is cold. When I asked him his name, he is cold. When I asked him why he is here, he says he is cold. Not really participating in interview whatsoever, ruminative. The patient does have blankets on, appearing internally preoccupied, hopeless, despairing, possible vegetative symptoms of depression. Dr. Tripp noting ongoing symptoms. Staff noting he seems disoriented, preoccupied, at times refusing medications. ASSESSMENT: The patient with ongoing symptoms ruminative, acting strange withdrawn, guarded, becomes verbally abusive when his needs are not met, remains impulsive, highly unpredictable. PLAN: We will continue to monitor. The patient is not safe for discharge. Ongoing symptoms. Medications were noted. [facility]# [id number]
[2018-02-07] MEDS: Insulin Detemir 100 units/mL 10mL Vial SUBQ SCH ×2 (09:10→21:06)
--- NOTE | 2018-02-07 18:53 | Progress Notes ---
DATE: 02/07/2018 SUBJECTIVE: The patient was seen at the dining area. The patient appears to be guarded. Episodes of behavioral outbursts. Otherwise, the patient appears to be in no acute distress. OBJECTIVE: VITAL SIGNS: Temperature 97.4, heart rate 74, blood pressure 140/73, respirations 17, 96% on room air. HEENT: Head is atraumatic, normocephalic. Eyes: Bilateral conjuctivae are clear. Bilateral pupils are equally round and reactive. NECK: Supple. No JVD. CARDIOVASCULAR: S1 and S2, without murmur. PULMONARY: Clear to auscultation. GASTROINTESTINAL: Soft and nontender without guarding. Positive bowel sounds. MUSCULOSKELETAL: No clubbing. No cyanosis noted. ASSESSMENT: 1. Schizoaffective disorder. 2. Hypertension. 3. Gastroesophageal reflux disease. 4. Diabetes. 5. Osteoarthritis. 6. Hyperlipidemia. PLAN: We will keep the patient inpatient psychiatric unit. We will follow up with a psychiatrist to monitor the patient's condition and behavior. Treatment plans were discussed with the patient's nurse. Treatment plans were discussed with Dr. Yu. JOB# [id number]
[2018-02-08] MEDS: Hydrocodone/APAP 5mg/325mg Tab PO SCH ×3 (05:41→20:57)
[2018-02-08] MEDS: INSULIN ASPART SLIDING SCALE 100 UNITS/ML UNIT SUBQ SCH ×4 (07:47→20:58)
--- NOTE | 2018-02-08 09:25 | General Progress Note ---
Subjective - Review of Systems Events since last encounter: patient is withdrawn guarded Objective - Results Result Diagrams: 02/02/18 19:52 02/02/18 19:52 Recent Labs: Laboratory Last Values WBC 6.0 Th/cmm (4.8-10.8) 02/02/18 19:52 RBC 4.44 Mil/cmm (4.30-5.70) 02/02/18 19:52 Hgb 13.7 gm/dL (12-16) 02/02/18 19:52 Hct 40.7 % (41.0-60) L 02/02/18 19:52 MCV 91.7 fl (80-99) 02/02/18 19:52 MCH 30.9 pg (26.0-30.0) H 02/02/18 19:52 MCHC Differential 33.7 pg (28.0-36.0) 02/02/18 19:52 RDW 12.8 % (11.5-20.0) 02/02/18 19:52 Plt Count 208 Th/cmm (150-400) 02/02/18 19:52 MPV 8.5 fl 02/02/18 19:52 Neutrophils % 60.4 % (40.0-80.0) 02/02/18 19:52 Lymphocytes % 26.6 % (20.0-50.0) 02/02/18 19:52 Monocytes % 7.6 % (2.0-10.0) 02/02/18 19:52 Eosinophils % 4.6 % (0.0-5.0) 02/02/18 19:52 Basophils % 0.8 % (0.0-2.0) 02/02/18 19:52 Sodium 137 mEq/L (136-145) 02/02/18 19:52 Potassium 4.0 mEq/L (3.5-5.1) 02/02/18 19:52 Chloride 101 mEq/L (98-107) 02/02/18 19:52 Carbon Dioxide 29.0 mEq/L (21.0-31.0) 02/02/18 19:52 Anion Gap 11.0 (7.0-16.0) 02/02/18 19:52 BUN 24 mg/dL (7-25) 02/02/18 19:52 Creatinine 1.7 mg/dL (0.7-1.3) H 02/02/18 19:52 Est GFR ( Amer) 54.3 ml/min (>90) 02/02/18 19:52 Est GFR (Non-Af Amer) 44.9 ml/min 02/02/18 19:52 BUN/Creatinine Ratio 14.1 02/02/18 19:52 Glucose 300 mg/dL (70-105) H 02/02/18 19:52 POC Glucose 128 MG/DL (70 - 105) H 02/08/18 07:39 Hemoglobin A1c % 8.8 % (4.0-6.0) H 02/02/18 19:52 Calcium 9.6 mg/dL (8.6-10.3) 02/02/18 19:52 Phosphorus 3.8 mg/dL (2.5-5.0) 02/02/18 19:52 Magnesium 2.0 mg/dL (1.9-2.7) 02/02/18 19:52 Total Bilirubin 0.3 mg/dL (0.3-1.0) 02/02/18 19:52 AST 16 U/L (13-39) 02/02/18 19:52 ALT 14 U/L (7-52) 02/02/18 19:52 Alkaline Phosphatase 50 U/L (34-104) 02/02/18 19:52 Total Protein 7.3 gm/dL (6.0-8.3) 02/02/18 19:52 Albumin 3.9 gm/dL (4.2-5.5) L 02/02/18 19:52 Globulin 3.4 gm/dL 02/02/18 19:52 Albumin/Globulin Ratio 1.2 (1.0-1.8) 02/02/18 19:52 Urine Source CLEAN C 02/02/18 20:00 Urine Color YELLOW 02/02/18 20:00 Urine Clarity CLEAR (CLEAR) 02/02/18 20:00 Urine pH 5.5 (4.6 - 8.0) 02/02/18 20:00 Ur Specific [place] >= 1.030 (1.005-1.030) 02/02/18 20:00 Urine Protein >=300 mg/dL (NEGATIVE) 02/02/18 20:00 Urine Glucose (UA) 250 mg/dL (NEGATIVE) H 02/02/18 20:00 Urine Ketones NEGATIVE mg/dL (NEGATIVE) 02/02/18 20:00 Urine Blood NEGATIVE (NEGATIVE) 02/02/18 20:00 Urine Nitrate NEGATIVE (NEGATIVE) 02/02/18 20:00 Urine Bilirubin NEGATIVE (NEGATIVE) 02/02/18 20:00 Urine Urobilinogen 0.2 E.U./dL (0.2 - 1.0) 02/02/18 20:00 Ur Leukocyte Esterase NEGATIVE (NEGATIVE) 02/02/18 20:00 Urine RBC 0-2 /hpf (0-5) H 02/02/18 20:00 Urine WBC 2-5 /hpf (0-5) 02/02/18 20:00 Ur Epithelial Cells FEW /lpf (FEW) 02/02/18 20:00 Urine Bacteria FEW /hpf (NONE SEEN) 02/02/18 20:00 Coarse Granular Casts 0-2 /lpf (NONE SEEN) H 02/02/18 20:00 Urine Opiates Screen POSITIVE (NEGATIVE) H 02/02/18 20:00 Urine Methadone Screen NEGATIVE (NEGATIVE) 02/02/18 20:00 Ur Barbiturates Screen NEGATIVE (NEGATIVE) 02/02/18 20:00 Valproic Acid < 10.0 ug/mL (50.0-100.0) L 02/02/18 19:52 Ur Tricyclics Screen NEGATIVE (NEGATIVE) 02/02/18 20:00 Ur Phencyclidine Scrn NEGATIVE (NEGATIVE) 02/02/18 20:00 Amphetamines Screen NEGATIVE (NEGATIVE) 02/02/18 20:00 U Methamphetamines Scrn NEGATIVE (NEGATIVE) 02/02/18 20:00 U Benzodiazepines Scrn NEGATIVE (NEGATIVE) 02/02/18 20:00 U Cocaine Metab Screen NEGATIVE (NEGATIVE) 02/02/18 20:00 U Cannabinoids Screen NEGATIVE (NEGATIVE) 02/02/18 20:00 - Physical Exam Vitals and I&O: Vital Signs Temp 96.7 F 02/08/18 06:28 Pulse 58 02/08/18 09:20 Resp 18 02/08/18 06:28 BP 164/80 02/08/18 09:20 Pulse Ox 99 02/08/18 06:28 Intake & Output 02/07/18 02/08/18 02/08/18 18:59 06:59 18:59 Intake Total 950 240 Balance 950 240 Intake: Oral 950 240 Other: # Voids 4 1 # Bowel Movements 1 Active Medications: Current Medications Acetaminophen/Hydrocodone Bitart ([place] 5mg/325mg) 1 tab PO Q8HR [facility] Stop: 04/04/18 04:59 Last Admin: 02/08/18 05:41 Dose: 1 tab Amlodipine Besylate (Norvasc) 10 mg PO DAILY [facility] Stop: 04/04/18 08:59 Last Admin: 02/08/18 09:19 Dose: 10 mg Divalproex Sodium (Depakote Dr) 250 mg PO BID [facility]; Protocol Stop: 04/04/18 08:59 Last Admin: 02/08/18 09:19 Dose: 250 mg Famotidine (Pepcid) 20 mg PO DAILY [facility] Stop: 04/04/18 08:59 Last Admin: 02/08/18 09:18 Dose: 20 mg Fluoxetine HCl (Prozac) 40 mg PO DAILY [facility]; Protocol Stop: 04/05/18 08:59 Last Admin: 02/08/18 09:18 Dose: 40 mg Hydralazine HCl (Apresoline) 25 mg PO TID [facility] Stop: 04/03/18 21:59 Last Admin: 02/08/18 09:19 Dose: 25 mg Insulin Aspart (Novolog Insulin Sliding Scale) 0 units SUBQ ACHS [facility]; Protocol Stop: 04/04/18 07:29 Last Admin: 02/08/18 07:47 Dose: Not Given Insulin Detemir (Levemir Insulin) 25 units SUBQ Q12HR [facility]; Protocol Stop: 04/04/18 08:59 Last Admin: 02/07/18 21:06 Dose: Not Given Lorazepam (Ativan) 0.5 mg PO Q4HR PRN; Protocol PRN Reason: Anxiety Stop: 03/04/18 23:12 Last Admin: 02/05/18 08:40 Dose: 0.5 mg Metoprolol Tartrate (Lopressor) 50 mg PO BID [facility] Stop: 04/04/18 08:59 Last Admin: 02/08/18 09:20 Dose: 50 mg Oxcarbazepine (Trileptal) 300 mg PO Q12HR [facility]; Protocol Stop: 04/04/18 08:59 Last Admin: 02/08/18 09:18 Dose: 300 mg Simvastatin (Zocor) 20 mg PO HS [facility]; Protocol Stop: 04/04/18 20:59 Last Admin: 02/07/18 20:56 Dose: 20 mg Zolpidem Tartrate (Ambien) 5 mg PO HS PRN PRN Reason: Insomnia Stop: 04/03/18 23:12 Last Admin: 02/05/18 21:22 Dose: 5 mg General: No acute distress HEENT: Atraumatic, PERRLA Neck: Supple, JVD Cardiovascular: Normal S1 Assessment/Plan - Problem List Patient Problems: All Active Problems Diabetes (Acute) E11.9 GERD (gastroesophageal reflux disease) (Acute) K21.9 HTN (hypertension) (Acute) I10 Hyperlipidemia (Acute) E78.5 Osteoarthritis (Acute) M19.90 Schizophrenia (Acute) F20.9 - Assessment Assessment: HTN DM hx CVA/TIA Dyslipidemia PUD/GERD Seizure pvd - Plan Plan: seizure precaution continue snf meds Nutritional Asmnt/Malnutr-PDOC - Dietary Evaluation Malnutrition Findings (Please click <Entered> for more info): Nutritional Asmnt/Malnutrition Start: 02/03/18 13: 39 Text: Status: Complete Freq: Protocol: Document 02/03/18 13:39 LCHENG (Rec: 02/03/18 13:49 [email or web address]) Nutritional Asmnt/Malnutrition Patient General Information Nutritional Screening High Risk Diagnosis psychosis NOS Pertinent Medical Hx/Surgical Hx HTN, DM, CVA/TIA, dyslipidemia , PUD/GERD, seizures, dysphagia, muscle weakness, difficulty in walking, PVD, dysartria, depression, schizophrenia, anxiety Subjective Information Pt seen sitting in chau-chair, confused, not able to communicate. Per nurse, pt consumed about 75% of breakfast this morning. Glucose 300 at admission noted . Current Diet Order/ Nutrition Support [facility] soft chopped, nectar thick liquid Patient / S.O Can't verbalize diet edu Pertinent Medications pepcid, novolog, levemir Pertinent Labs 02/02 Cr 1.7, glucose 300, Alb 3.9 02/03 POC 198 Nutritional Hx/Data Height 1.7 m Height (Calculated Centimeters) 170.2 Current Weight (lbs) 58.967 kg Weight (Calculated Kilograms) 59.0 Weight (Calculated Grams) 14131.0 Okay Body Weight 148 Body Mass Index (BMI) 20.3 Weight Status Approriate GI Symptoms GI Symptoms None Last BM not indicated Difficult in: None Skin Integrity/Comment: yolanda Amador skin assessment not available as of this time Current %PO Good (75-100%) Estimated Nutritional Goals BEE in Kcals: Using Current wt Calories/Kcals/Kg 25-30 Kcals Calculated 5764-8078 Protein: Using Current wt Protein g/k-1.2 Protein Calculated 59-71 Fluid: ml 1475-1770ml (1ml/kcal) Nutritional Problem 1. Problem Problem altered nutrition related labs Etiology hx of DM Signs/Symptoms: glucose 300, POC 198 Malnutrition Alert Is there a minimum of two criteria No selected? Query Text:Check all the applicable criteria. A minimum of two criteria are recommended for diagnosis of either severe or non-severe malnutrition. Malnutrition Related to Morbid Obesity Malnutrition related to morbid obesity No Intervention/Recommendation Comments 1. Continue with mech soft chopped with nectar thick liquid diet as ordered. Considering adding CCHO diet if glucose continue high. 2. Monitor PO intake, wt, labs and skin integrity 3. F/U as high risk in 2-3 dyas, 02/05-02/06 Expected Outcomes/Goals Expected Outcomes/Goals 1. PO intake to meet at least 75% of nutritional needs. 2. Wt stability, skin to remain intact, labs to approach WNL.
--- NOTE | 2018-02-08 10:52 | Progress Notes ---
DATE: 02/08/2018 SUBJECTIVE: The patient in the hospital for severe depression, self-destructive behaviors, feeling hopeless, helpless, just repeating over "please God help me out, please God help me out." I asked him his mood. He states "fine." He was pretty ruminative yesterday, remains ruminative today. The patient mostly keeps to himself, withdrawn. Speech was slurred, but understandable, status post stroke, no apparent distress, talking about God at this time, still preoccupied. 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 MEDICATIONS: Reviewed. We will monitor him closely. [facility]# [id number]
[2018-02-08] MEDS: Insulin Detemir 100 units/mL 10mL Vial SUBQ SCH ×2 (11:20→20:58)
[2018-02-09] MEDS: Hydrocodone/APAP 5mg/325mg Tab PO SCH ×3 (05:17→21:24)
[2018-02-09] MEDS: INSULIN ASPART SLIDING SCALE 100 UNITS/ML UNIT SUBQ SCH ×4 (06:39→21:25)
[2018-02-09] MEDS: Insulin Detemir 100 units/mL 10mL Vial SUBQ SCH ×2 (10:00→21:00)
--- NOTE | 2018-02-09 10:23 | General Progress Note ---
Subjective - Review of Systems Events since last encounter: patient is depressed withdrawn in no distress Objective - Results Result Diagrams: 02/02/18 19:52 02/02/18 19:52 Recent Labs: Laboratory Last Values WBC 6.0 Th/cmm (4.8-10.8) 02/02/18 19:52 RBC 4.44 Mil/cmm (4.30-5.70) 02/02/18 19:52 Hgb 13.7 gm/dL (12-16) 02/02/18 19:52 Hct 40.7 % (41.0-60) L 02/02/18 19:52 MCV 91.7 fl (80-99) 02/02/18 19:52 MCH 30.9 pg (26.0-30.0) H 02/02/18 19:52 MCHC Differential 33.7 pg (28.0-36.0) 02/02/18 19:52 RDW 12.8 % (11.5-20.0) 02/02/18 19:52 Plt Count 208 Th/cmm (150-400) 02/02/18 19:52 MPV 8.5 fl 02/02/18 19:52 Neutrophils % 60.4 % (40.0-80.0) 02/02/18 19:52 Lymphocytes % 26.6 % (20.0-50.0) 02/02/18 19:52 Monocytes % 7.6 % (2.0-10.0) 02/02/18 19:52 Eosinophils % 4.6 % (0.0-5.0) 02/02/18 19:52 Basophils % 0.8 % (0.0-2.0) 02/02/18 19:52 Sodium 137 mEq/L (136-145) 02/02/18 19:52 Potassium 4.0 mEq/L (3.5-5.1) 02/02/18 19:52 Chloride 101 mEq/L (98-107) 02/02/18 19:52 Carbon Dioxide 29.0 mEq/L (21.0-31.0) 02/02/18 19:52 Anion Gap 11.0 (7.0-16.0) 02/02/18 19:52 BUN 24 mg/dL (7-25) 02/02/18 19:52 Creatinine 1.7 mg/dL (0.7-1.3) H 02/02/18 19:52 Est GFR ( Amer) 54.3 ml/min (>90) 02/02/18 19:52 Est GFR (Non-Af Amer) 44.9 ml/min 02/02/18 19:52 BUN/Creatinine Ratio 14.1 02/02/18 19:52 Glucose 300 mg/dL (70-105) H 02/02/18 19:52 POC Glucose 98 MG/DL (70 - 105) 02/09/18 10:00 Hemoglobin A1c % 8.8 % (4.0-6.0) H 02/02/18 19:52 Calcium 9.6 mg/dL (8.6-10.3) 02/02/18 19:52 Phosphorus 3.8 mg/dL (2.5-5.0) 02/02/18 19:52 Magnesium 2.0 mg/dL (1.9-2.7) 02/02/18 19:52 Total Bilirubin 0.3 mg/dL (0.3-1.0) 02/02/18 19:52 AST 16 U/L (13-39) 02/02/18 19:52 ALT 14 U/L (7-52) 02/02/18 19:52 Alkaline Phosphatase 50 U/L (34-104) 02/02/18 19:52 Total Protein 7.3 gm/dL (6.0-8.3) 02/02/18 19:52 Albumin 3.9 gm/dL (4.2-5.5) L 02/02/18 19:52 Globulin 3.4 gm/dL 02/02/18 19:52 Albumin/Globulin Ratio 1.2 (1.0-1.8) 02/02/18 19:52 Urine Source CLEAN C 02/02/18 20:00 Urine Color YELLOW 02/02/18 20:00 Urine Clarity CLEAR (CLEAR) 02/02/18 20:00 Urine pH 5.5 (4.6 - 8.0) 02/02/18 20:00 Ur Specific [place] >= 1.030 (1.005-1.030) 02/02/18 20:00 Urine Protein >=300 mg/dL (NEGATIVE) 02/02/18 20:00 Urine Glucose (UA) 250 mg/dL (NEGATIVE) H 02/02/18 20:00 Urine Ketones NEGATIVE mg/dL (NEGATIVE) 02/02/18 20:00 Urine Blood NEGATIVE (NEGATIVE) 02/02/18 20:00 Urine Nitrate NEGATIVE (NEGATIVE) 02/02/18 20:00 Urine Bilirubin NEGATIVE (NEGATIVE) 02/02/18 20:00 Urine Urobilinogen 0.2 E.U./dL (0.2 - 1.0) 02/02/18 20:00 Ur Leukocyte Esterase NEGATIVE (NEGATIVE) 02/02/18 20:00 Urine RBC 0-2 /hpf (0-5) H 02/02/18 20:00 Urine WBC 2-5 /hpf (0-5) 02/02/18 20:00 Ur Epithelial Cells FEW /lpf (FEW) 02/02/18 20:00 Urine Bacteria FEW /hpf (NONE SEEN) 02/02/18 20:00 Coarse Granular Casts 0-2 /lpf (NONE SEEN) H 02/02/18 20:00 Urine Opiates Screen POSITIVE (NEGATIVE) H 02/02/18 20:00 Urine Methadone Screen NEGATIVE (NEGATIVE) 02/02/18 20:00 Ur Barbiturates Screen NEGATIVE (NEGATIVE) 02/02/18 20:00 Valproic Acid < 10.0 ug/mL (50.0-100.0) L 02/02/18 19:52 Ur Tricyclics Screen NEGATIVE (NEGATIVE) 02/02/18 20:00 Ur Phencyclidine Scrn NEGATIVE (NEGATIVE) 02/02/18 20:00 Amphetamines Screen NEGATIVE (NEGATIVE) 02/02/18 20:00 U Methamphetamines Scrn NEGATIVE (NEGATIVE) 02/02/18 20:00 U Benzodiazepines Scrn NEGATIVE (NEGATIVE) 02/02/18 20:00 U Cocaine Metab Screen NEGATIVE (NEGATIVE) 02/02/18 20:00 U Cannabinoids Screen NEGATIVE (NEGATIVE) 02/02/18 20:00 - Physical Exam Vitals and I&O: Vital Signs Temp 98.5 F 02/08/18 20:32 Pulse 60 02/09/18 09:16 Resp 18 02/08/18 20:32 BP 142/77 02/09/18 09:16 Pulse Ox 97 02/08/18 20:32 Intake & Output 02/08/18 02/09/18 02/09/18 18:59 06:59 18:59 Intake Total 900 120 Balance 900 120 Intake: Oral 900 120 Other: # Voids 4 3 # Bowel Movements 0 Active Medications: Current Medications Acetaminophen/Hydrocodone Bitart ([place] 5mg/325mg) 1 tab PO Q8HR [facility] Stop: 04/04/18 04:59 Last Admin: 02/09/18 05:17 Dose: 1 tab Amlodipine Besylate (Norvasc) 10 mg PO DAILY [facility] Stop: 04/04/18 08:59 Last Admin: 02/09/18 09:15 Dose: 10 mg Divalproex Sodium (Depakote Dr) 250 mg PO BID [facility]; Protocol Stop: 04/04/18 08:59 Last Admin: 02/09/18 09:14 Dose: 250 mg Famotidine (Pepcid) 20 mg PO DAILY [facility] Stop: 04/04/18 08:59 Last Admin: 02/09/18 09:14 Dose: 20 mg Fluoxetine HCl (Prozac) 40 mg PO DAILY [facility]; Protocol Stop: 04/05/18 08:59 Last Admin: 02/09/18 09:14 Dose: 40 mg Hydralazine HCl (Apresoline) 25 mg PO TID [facility] Stop: 04/03/18 21:59 Last Admin: 02/09/18 09:16 Dose: 25 mg Insulin Aspart (Novolog Insulin Sliding Scale) 0 units SUBQ ACHS [facility]; Protocol Stop: 04/04/18 07:29 Last Admin: 02/09/18 06:39 Dose: Not Given Insulin Detemir (Levemir Insulin) 25 units SUBQ Q12HR [facility]; Protocol Stop: 04/04/18 08:59 Last Admin: 02/08/18 20:58 Dose: 25 units Lorazepam (Ativan) 0.5 mg PO Q4HR PRN; Protocol PRN Reason: Anxiety Stop: 03/04/18 23:12 Last Admin: 02/05/18 08:40 Dose: 0.5 mg Metoprolol Tartrate (Lopressor) 50 mg PO BID [facility] Stop: 04/04/18 08:59 Last Admin: 02/09/18 09:16 Dose: Not Given Oxcarbazepine (Trileptal) 300 mg PO Q12HR [facility]; Protocol Stop: 04/04/18 08:59 Last Admin: 02/09/18 09:15 Dose: 300 mg Simvastatin (Zocor) 20 mg PO HS [facility]; Protocol Stop: 04/04/18 20:59 Last Admin: 02/08/18 21:00 Dose: 20 mg Zolpidem Tartrate (Ambien) 5 mg PO HS PRN PRN Reason: Insomnia Stop: 04/03/18 23:12 Last Admin: 02/05/18 21:22 Dose: 5 mg General: No acute distress HEENT: Atraumatic, PERRLA Neck: Supple, JVD Cardiovascular: Normal S1 Assessment/Plan - Problem List Patient Problems: All Active Problems Diabetes (Acute) E11.9 GERD (gastroesophageal reflux disease) (Acute) K21.9 HTN (hypertension) (Acute) I10 Hyperlipidemia (Acute) E78.5 Osteoarthritis (Acute) M19.90 Schizophrenia (Acute) F20.9 - Assessment Assessment: HTN DM hx CVA/TIA Dyslipidemia PUD/GERD Seizure pvd - Plan Plan: seizure precaution continue snf meds Nutritional Asmnt/Malnutr-PDOC - Dietary Evaluation Malnutrition Findings (Please click <Entered> for more info): Nutritional Asmnt/Malnutrition Start: 02/03/18 13: 39 Text: Status: Complete Freq: Protocol: Document 02/03/18 13:39 LCHENG (Rec: 02/03/18 13:49 [email or web address]) Nutritional Asmnt/Malnutrition Patient General Information Nutritional Screening High Risk Diagnosis psychosis NOS Pertinent Medical Hx/Surgical Hx HTN, DM, CVA/TIA, dyslipidemia , PUD/GERD, seizures, dysphagia, muscle weakness, difficulty in walking, PVD, dysartria, depression, schizophrenia, anxiety Subjective Information Pt seen sitting in chau-chair, confused, not able to communicate. Per nurse, pt consumed about 75% of breakfast this morning. Glucose 300 at admission noted . Current Diet Order/ Nutrition Support [facility] soft chopped, nectar thick liquid Patient / S.O Can't verbalize diet edu Pertinent Medications pepcid, novolog, levemir Pertinent Labs 02/02 Cr 1.7, glucose 300, Alb 3.9 02/03 POC 198 Nutritional Hx/Data Height 1.7 m Height (Calculated Centimeters) 170.2 Current Weight (lbs) 58.967 kg Weight (Calculated Kilograms) 59.0 Weight (Calculated Grams) 78535.0 [place] Body Weight 148 Body Mass Index (BMI) 20.3 Weight Status Approriate GI Symptoms GI Symptoms None Last BM not indicated Difficult in: None Skin Integrity/Comment: yolanda Amador skin assessment not available as of this time Current %PO Good (75-100%) Estimated Nutritional Goals BEE in Kcals: Using Current wt Calories/Kcals/Kg 25-30 Kcals Calculated 8776-0674 Protein: Using Current wt Protein g/k-1.2 Protein Calculated 59-71 Fluid: ml 1475-1770ml (1ml/kcal) Nutritional Problem 1. Problem Problem altered nutrition related labs Etiology hx of DM Signs/Symptoms: glucose 300, POC 198 Malnutrition Alert Is there a minimum of two criteria No selected? Query Text:Check all the applicable criteria. A minimum of two criteria are recommended for diagnosis of either severe or non-severe malnutrition. Malnutrition Related to Morbid Obesity Malnutrition related to morbid obesity No Intervention/Recommendation Comments 1. Continue with mech soft chopped with nectar thick liquid diet as ordered. Considering adding CCHO diet if glucose continue high. 2. Monitor PO intake, wt, labs and skin integrity 3. F/U as high risk in 2-3 dyas, 02/05-02/06 Expected Outcomes/Goals Expected Outcomes/Goals 1. PO intake to meet at least 75% of nutritional needs. 2. Wt stability, skin to remain intact, labs to approach WNL.
--- NOTE | 2018-02-09 15:03 | Progress Notes ---
DATE: 02/09/2018 SUBJECTIVE: The patient is currently in the hospital, depression, self destructive behaviors, banging head against the wall. The patient on face to face poor historian, not saying much to me, staring blankly, not answering any questions. Per staff, slept fairly well. Poorly oriented, making simple needs known, but quiet, withdrawn, apathetic appearing, preoccupied. Difficult to interview as he is just staring blankly at me. He has not said more than a few words to me over the past couple of days. Per staff, he remains impulsive, unpredictable, for example getting agitated, irritable. Unclear what is triggers are. ASSESSMENT: The patient is a very depressed, withdrawn, symptomatic, irritable, mostly keeps himself. PLAN: We will continue to monitor, titrate and adjust medications. The patient remains severely depressed, withdrawn, ongoing safety concerns. Consider dose titration. JOB# [id number]
[2018-02-10] MEDS: Hydrocodone/APAP 5mg/325mg Tab PO SCH ×3 (05:00→20:35)
[2018-02-10] MEDS: INSULIN ASPART SLIDING SCALE 100 UNITS/ML UNIT SUBQ SCH ×4 (06:50→20:37)
[2018-02-10] MEDS: Insulin Detemir 100 units/mL 10mL Vial SUBQ SCH ×2 (09:58→20:37)
--- NOTE | 2018-02-10 18:07 | Progress Notes ---
DATE: 02/10/2018 Case was discussed with staff of the patient, reviewed records. The patient continues to be internally preoccupied. Continues to have flat affect, staring blankly, not answering most questions. He is sleeping well. He has been quiet apathetic, internally preoccupied. Unable to participate in a meaningful conversation or make safe plan for self-care. He has been compliant with the medication with no side effects, no sedation, no nausea and he is on fluoxetine, Depakote 250 twice a day and Trileptal 300 mg twice a day. I will be checking his Depakote level and we will continue outpatient group therapy, milieu therapy, adjust the medication as needed. JOB# [id number]
[2018-02-11] MEDS: Hydrocodone/APAP 5mg/325mg Tab PO SCH ×2 (05:12→13:57)
[2018-02-11] MEDS: INSULIN ASPART SLIDING SCALE 100 UNITS/ML UNIT SUBQ SCH ×2 (06:30→11:17)
[2018-02-11] MEDS: Insulin Detemir 100 units/mL 10mL Vial SUBQ SCH (09:57)
--- NOTE | 2018-02-11 15:35 | General Progress Note ---
Subjective - Review of Systems Events since last encounter: patient awake confused blunted effect Objective - Results Result Diagrams: 02/02/18 19:52 02/02/18 19:52 Recent Labs: Laboratory Last Values WBC 6.0 Th/cmm (4.8-10.8) 02/02/18 19:52 RBC 4.44 Mil/cmm (4.30-5.70) 02/02/18 19:52 Hgb 13.7 gm/dL (12-16) 02/02/18 19:52 Hct 40.7 % (41.0-60) L 02/02/18 19:52 MCV 91.7 fl (80-99) 02/02/18 19:52 MCH 30.9 pg (26.0-30.0) H 02/02/18 19:52 MCHC Differential 33.7 pg (28.0-36.0) 02/02/18 19:52 RDW 12.8 % (11.5-20.0) 02/02/18 19:52 Plt Count 208 Th/cmm (150-400) 02/02/18 19:52 MPV 8.5 fl 02/02/18 19:52 Neutrophils % 60.4 % (40.0-80.0) 02/02/18 19:52 Lymphocytes % 26.6 % (20.0-50.0) 02/02/18 19:52 Monocytes % 7.6 % (2.0-10.0) 02/02/18 19:52 Eosinophils % 4.6 % (0.0-5.0) 02/02/18 19:52 Basophils % 0.8 % (0.0-2.0) 02/02/18 19:52 Sodium 137 mEq/L (136-145) 02/02/18 19:52 Potassium 4.0 mEq/L (3.5-5.1) 02/02/18 19:52 Chloride 101 mEq/L (98-107) 02/02/18 19:52 Carbon Dioxide 29.0 mEq/L (21.0-31.0) 02/02/18 19:52 Anion Gap 11.0 (7.0-16.0) 02/02/18 19:52 BUN 24 mg/dL (7-25) 02/02/18 19:52 Creatinine 1.7 mg/dL (0.7-1.3) H 02/02/18 19:52 Est GFR ( Amer) 54.3 ml/min (>90) 02/02/18 19:52 Est GFR (Non-Af Amer) 44.9 ml/min 02/02/18 19:52 BUN/Creatinine Ratio 14.1 02/02/18 19:52 Glucose 300 mg/dL (70-105) H 02/02/18 19:52 POC Glucose 252 MG/DL (70 - 105) H 02/11/18 11:10 Hemoglobin A1c % 8.8 % (4.0-6.0) H 02/02/18 19:52 Calcium 9.6 mg/dL (8.6-10.3) 02/02/18 19:52 Phosphorus 3.8 mg/dL (2.5-5.0) 02/02/18 19:52 Magnesium 2.0 mg/dL (1.9-2.7) 02/02/18 19:52 Total Bilirubin 0.3 mg/dL (0.3-1.0) 02/02/18 19:52 AST 16 U/L (13-39) 02/02/18 19:52 ALT 14 U/L (7-52) 02/02/18 19:52 Alkaline Phosphatase 50 U/L (34-104) 02/02/18 19:52 Total Protein 7.3 gm/dL (6.0-8.3) 02/02/18 19:52 Albumin 3.9 gm/dL (4.2-5.5) L 02/02/18 19:52 Globulin 3.4 gm/dL 02/02/18 19:52 Albumin/Globulin Ratio 1.2 (1.0-1.8) 02/02/18 19:52 Urine Source CLEAN C 02/02/18 20:00 Urine Color YELLOW 02/02/18 20:00 Urine Clarity CLEAR (CLEAR) 02/02/18 20:00 Urine pH 5.5 (4.6 - 8.0) 02/02/18 20:00 Ur Specific [place] >= 1.030 (1.005-1.030) 02/02/18 20:00 Urine Protein >=300 mg/dL (NEGATIVE) 02/02/18 20:00 Urine Glucose (UA) 250 mg/dL (NEGATIVE) H 02/02/18 20:00 Urine Ketones NEGATIVE mg/dL (NEGATIVE) 02/02/18 20:00 Urine Blood NEGATIVE (NEGATIVE) 02/02/18 20:00 Urine Nitrate NEGATIVE (NEGATIVE) 02/02/18 20:00 Urine Bilirubin NEGATIVE (NEGATIVE) 02/02/18 20:00 Urine Urobilinogen 0.2 E.U./dL (0.2 - 1.0) 02/02/18 20:00 Ur Leukocyte Esterase NEGATIVE (NEGATIVE) 02/02/18 20:00 Urine RBC 0-2 /hpf (0-5) H 02/02/18 20:00 Urine WBC 2-5 /hpf (0-5) 02/02/18 20:00 Ur Epithelial Cells FEW /lpf (FEW) 02/02/18 20:00 Urine Bacteria FEW /hpf (NONE SEEN) 02/02/18 20:00 Coarse Granular Casts 0-2 /lpf (NONE SEEN) H 02/02/18 20:00 Urine Opiates Screen POSITIVE (NEGATIVE) H 02/02/18 20:00 Urine Methadone Screen NEGATIVE (NEGATIVE) 02/02/18 20:00 Ur Barbiturates Screen NEGATIVE (NEGATIVE) 02/02/18 20:00 Valproic Acid 39.0 ug/mL (50.0-100.0) L 02/10/18 12:15 Ur Tricyclics Screen NEGATIVE (NEGATIVE) 02/02/18 20:00 Ur Phencyclidine Scrn NEGATIVE (NEGATIVE) 02/02/18 20:00 Amphetamines Screen NEGATIVE (NEGATIVE) 02/02/18 20:00 U Methamphetamines Scrn NEGATIVE (NEGATIVE) 02/02/18 20:00 U Benzodiazepines Scrn NEGATIVE (NEGATIVE) 02/02/18 20:00 U Cocaine Metab Screen NEGATIVE (NEGATIVE) 02/02/18 20:00 U Cannabinoids Screen NEGATIVE (NEGATIVE) 02/02/18 20:00 - Physical Exam Vitals and I&O: Vital Signs Temp 97.8 F 02/11/18 14:00 Pulse 69 02/11/18 14:30 Resp 20 02/11/18 14:00 BP 169/94 02/11/18 14:30 Pulse Ox 97 02/11/18 14:00 Intake & Output 02/10/18 02/11/18 02/11/18 18:59 06:59 18:59 Intake Total 800 120 Balance 800 120 Intake: Oral 800 120 Other: # Voids 4 3 # Bowel Movements 0 Active Medications: Current Medications Acetaminophen/Hydrocodone Bitart ([place] 5mg/325mg) 1 tab PO Q8HR [facility] Stop: 04/04/18 04:59 Last Admin: 02/11/18 13:57 Dose: 1 tab Amlodipine Besylate (Norvasc) 10 mg PO DAILY [facility] Stop: 04/04/18 08:59 Last Admin: 02/11/18 09:15 Dose: 10 mg Divalproex Sodium (Depakote Dr) 250 mg PO BID [facility]; Protocol Stop: 04/04/18 08:59 Last Admin: 02/11/18 09:17 Dose: 250 mg Famotidine (Pepcid) 20 mg PO DAILY [facility] Stop: 04/04/18 08:59 Last Admin: 02/11/18 09:17 Dose: 20 mg Fluoxetine HCl (Prozac) 40 mg PO DAILY [facility]; Protocol Stop: 04/05/18 08:59 Last Admin: 02/11/18 09:13 Dose: 40 mg Hydralazine HCl (Apresoline) 25 mg PO TID [facility] Stop: 04/03/18 21:59 Last Admin: 02/11/18 14:30 Dose: 25 mg Insulin Aspart (Novolog Insulin Sliding Scale) 0 units SUBQ ACHS [facility]; Protocol Stop: 04/04/18 07:29 Last Admin: 02/11/18 11:17 Dose: 4 units Insulin Detemir (Levemir Insulin) 25 units SUBQ Q12HR [facility]; Protocol Stop: 04/04/18 08:59 Last Admin: 02/11/18 09:57 Dose: Not Given Lorazepam (Ativan) 0.5 mg PO Q4HR PRN; Protocol PRN Reason: Anxiety Stop: 03/04/18 23:12 Last Admin: 02/05/18 08:40 Dose: 0.5 mg Metoprolol Tartrate (Lopressor) 50 mg PO BID [facility] Stop: 04/04/18 08:59 Last Admin: 02/11/18 09:14 Dose: 50 mg Oxcarbazepine (Trileptal) 300 mg PO Q12HR [facility]; Protocol Stop: 04/04/18 08:59 Last Admin: 02/11/18 09:14 Dose: 300 mg Simvastatin (Zocor) 20 mg PO HS [facility]; Protocol Stop: 04/04/18 20:59 Last Admin: 02/10/18 20:36 Dose: 20 mg Zolpidem Tartrate (Ambien) 5 mg PO HS PRN PRN Reason: Insomnia Stop: 04/03/18 23:12 Last Admin: 02/05/18 21:22 Dose: 5 mg General: No acute distress HEENT: Atraumatic, PERRLA Neck: Supple, JVD Cardiovascular: Normal S1 Assessment/Plan - Problem List Patient Problems: All Active Problems Diabetes (Acute) E11.9 GERD (gastroesophageal reflux disease) (Acute) K21.9 HTN (hypertension) (Acute) I10 Hyperlipidemia (Acute) E78.5 Osteoarthritis (Acute) M19.90 Schizophrenia (Acute) F20.9 - Assessment Assessment: HTN DM hx CVA/TIA Dyslipidemia PUD/GERD Seizure pvd - Plan Plan: seizure precaution continue snf meds Nutritional Asmnt/Malnutr-PDOC - Dietary Evaluation Malnutrition Findings (Please click <Entered> for more info): Nutritional Asmnt/Malnutrition Start: 02/03/18 13: 39 Text: Status: Complete Freq: Protocol: Document 02/03/18 13:39 LCHENG (Rec: 02/03/18 13:49 [email or web address]) Nutritional Asmnt/Malnutrition Patient General Information Nutritional Screening High Risk Diagnosis psychosis NOS Pertinent Medical Hx/Surgical Hx HTN, DM, CVA/TIA, dyslipidemia , PUD/GERD, seizures, dysphagia, muscle weakness, difficulty in walking, PVD, dysartria, depression, schizophrenia, anxiety Subjective Information Pt seen sitting in chau-chair, confused, not able to communicate. Per nurse, pt consumed about 75% of breakfast this morning. Glucose 300 at admission noted . Current Diet Order/ Nutrition Support [facility] soft chopped, nectar thick liquid Patient / S.O Can't verbalize diet edu Pertinent Medications pepcid, novolog, levemir Pertinent Labs 02/02 Cr 1.7, glucose 300, Alb 3.9 02/03 POC 198 Nutritional Hx/Data Height 1.7 m Height (Calculated Centimeters) 170.2 Current Weight (lbs) 58.967 kg Weight (Calculated Kilograms) 59.0 Weight (Calculated Grams) 01793.0 [place] Body Weight 148 Body Mass Index (BMI) 20.3 Weight Status Approriate GI Symptoms GI Symptoms None Last BM not indicated Difficult in: None Skin Integrity/Comment: yolanda Amador skin assessment not available as of this time Current %PO Good (75-100%) Estimated Nutritional Goals BEE in Kcals: Using Current wt Calories/Kcals/Kg 25-30 Kcals Calculated 5880-9321 Protein: Using Current wt Protein g/k-1.2 Protein Calculated 59-71 Fluid: ml 1475-1770ml (1ml/kcal) Nutritional Problem 1. Problem Problem altered nutrition related labs Etiology hx of DM Signs/Symptoms: glucose 300, POC 198 Malnutrition Alert Is there a minimum of two criteria No selected? Query Text:Check all the applicable criteria. A minimum of two criteria are recommended for diagnosis of either severe or non-severe malnutrition. Malnutrition Related to Morbid Obesity Malnutrition related to morbid obesity No Intervention/Recommendation Comments 1. Continue with mech soft chopped with nectar thick liquid diet as ordered. Considering adding CCHO diet if glucose continue high. 2. Monitor PO intake, wt, labs and skin integrity 3. F/U as high risk in 2-3 dyas, 02/05-02/06 Expected Outcomes/Goals Expected Outcomes/Goals 1. PO intake to meet at least 75% of nutritional needs. 2. Wt stability, skin to remain intact, labs to approach WNL.
--- NOTE | 2018-02-11 18:31 | Progress Notes ---
DATE: 02/11/2018 PROGRESS ON THE UNIT: Case was discussed with staff of the patient, reviewed records. The patient's Depakote level checked yesterday, it was 39, which is low; however, he continues to be internally preoccupied. He continues to not participate much. He continues to be unable to participate in meaningful conversation or make a safe plan for self-care with some blocked thoughts. No side effects with the medication, no sedation, no nausea, no extrapyramidal symptoms. PLAN: We will continue to work with the patient in group therapy and milieu therapy, adjust medications as needed. JOB# [id number]
== END 2018-02-11 17:00 | DRG 885 ==
LOC: ER 19:08 → GERO 20:55
PROVIDERS: ADMIT Psychiatry & Neurology Psychiatry; ATTEND Psychiatry & Neurology Psychiatry
DX: F25.1 Schizoaffective disorder, depressive type (principal); E11.65 Type 2 diabetes mellitus with hyperglycemia; I69.354 Hemiplegia and hemiparesis following cerebral infarction affecting left non-dominant side; I10 Essential (primary) hypertension; E78.5 Hyperlipidemia, unspecified; K27.9 Peptic ulcer, site unspecified, unspecified as acute or chronic, without hemorrhage or perforation; K21.9 Gastro-esophageal reflux disease without esophagitis; F41.9 Anxiety disorder, unspecified; F32.9 Major depressive disorder, single episode, unspecified; R13.12 Dysphagia, oropharyngeal phase; E11.51 Type 2 diabetes mellitus with diabetic peripheral angiopathy without gangrene; G40.909 Epilepsy, unspecified, not intractable, without status epilepticus; Z79.4 Long term (current) use of insulin
CPT/HCPCS: 36415-UA; 80053-TC; 80164-TC; 80307; 81001-TC; 82948-90; 83036-90; 83735-TC; 84100-TC; 85025-TC; 90899; J1815; Z7610